=== PATIENT | male | born 1995 | race Caucasian/White ===

== ENCOUNTER 2018-05-08 11:02 | Emergency (ER) | payer OTHER ==
[2018-05-08 11:07] VITALS: TEMP 98.5
--- NOTE | 2018-05-08 11:33 | ED ---
General Adult HPI - General Chief complaint: Shortness of Breath Stated complaint: SOB Source: patient Mode of arrival: ambulatory Limitations: no limitations - History of Present Illness Initial comments: Dictation was produced using [employer] dictation software. please excuse any grammatical, word or spelling errors. Chief Complaint: 22-year-old male with past medical history of seasonal ALLERGIES presents with persistent dyspnea. History of Present Illness: Patient is a 22-year-old male with history of seasonal ALLERGIES presents with persistent dyspnea. Patient has been sick for approximately one week. States that he has been having productive cough, runny nose and nasal congestion. He was seen at a walk-in clinic by his primary care physician on Thursday. He was started on Augmentin. Patient states that his symptoms have persisted despite being on proximally 4-5 days of antibiotics. Patient denies any chest pain. He states that his shortness of breath is worse with exertion. Patient was concerned because he has a history of pneumonia. The ROS documented in this emergency department record has been reviewed and confirmed by me. Those systems with pertinent positive or negative responses have been documented in the HPI. All other systems are other negative and/or noncontributory. - Related Data Home Medications Medication Instructions Recorded Confirmed Acetaminophen [Tylenol Arthritis] 650 - 1,300 mg PO Q12H PRN 01/08/16 01/08/16 Fexofenadine/Pseudoephedrine 1 tab PO DAILY 01/08/16 01/08/16 [Priyanka-D 24 Hour Tablet] Previous Rx's Medication Instructions Recorded Ibuprofen [Motrin] 600 mg PO Q6HR PRN #40 day 01/08/16 Allergies Allergy/AdvReac Type Severity Reaction Status Date / Time No Known Allergies Allergy Verified 05/08/18 11:07 Review of Systems ROS Statement: Those systems with pertinent positive or pertinent negative responses have been documented in the HPI. ROS Other: All systems not noted in ROS Statement are negative. Past Medical History Additional Past Medical History / Comment(s): allergies History of Any Multi-Drug Resistant Organisms: None Reported Additional Past Surgical History / Comment(s): mastoidectomy Past Psychological History: No Psychological Hx Reported Smoking Status: Never smoker Past Alcohol Use History: Occasional Past Drug Use History: None Reported General Exam - General Exam Comments Initial Comments: PHYSICAL EXAM: General Impression: Alert and oriented x3, not in acute distress HEENT: Normocephalic atraumatic, extra-ocular movements intact, pupils equal and reactive to light bilaterally, mucous membranes moist. Cardiovascular: Heart regular rate and rhythm, S1&S2 audible, no murmurs, rubs or gallops Chest: Mild wheezing in the right upper lung field Abdomen: Bowel sounds present, abdomen soft, non-tender, non-distended, no organomegaly Musculoskeletal: Pulses present and equal in all extremities, no peripheral edema Motor: Power 5/5 bilaterally, no focal deficits noted Neurological: CN II-XII grossly intact, no focal motor or sensory deficits noted Skin: Intact with no visualized rashes Psych: Normal affect and mood Limitations: no limitations Course Vital Signs 05/08/18 11:02 Temperature 98.5 F Pulse Rate 88 Respiratory 18 Rate Blood Pressure 144/84 O2 Sat by Pulse 97 Oximetry Medical Decision Making - Medical Decision Making ED course: 22-year-old male presents with persistent dyspnea despite antibiotic treatment. vital signs upon arrival are within acceptable limits. Patient does have some positive auscultatory sounds in the right upper lung field. Laboratory evaluation obtained there is mild leukocytosis likely secondary to URI. Rest of labs are unremarkable. X-ray shows no acute processes. Patient appears well. He is told that is clear for discharge. He still to follow-up with his primary care physician or early next week. Advised to use [id number] medications. Told to take Tylenol and Motrin or other antipyretics for symptomatic control. Still to stay well-hydrated. Patient advised to come back to the emergency department should he expense worsening symptoms. Otherwise he is to follow-up with his primary care physician. - Lab Data Result diagrams: 05/08/18 11:45 05/08/18 11:45 Lab Results 05/08/18 05/08/18 Range/Units 11:45 11:45 WBC 15.8 H (3.8-10.6) k/uL RBC 5.42 (4.30-5.90) m/uL Hgb 15.9 (13.0-17.5) gm/dL Hct 45.3 (39.0-53.0) % MCV 83.7 (80.0-100.0) fL MCH 29.3 (25.0-35.0) pg MCHC 35.1 (31.0-37.0) g/dL RDW 12.6 (11.5-15.5) % Plt Count 201 (150-450) k/uL Neutrophils % 79 % Lymphocytes % 12 % Monocytes % 7 % Eosinophils % 1 % Basophils % 0 % Neutrophils # 12.5 H (1.3-7.7) k/uL Lymphocytes # 1.9 (1.0-4.8) k/uL Monocytes # 1.1 H (0-1.0) k/uL Eosinophils # 0.1 (0-0.7) k/uL Basophils # 0.1 (0-0.2) k/uL Sodium 139 (137-145) mmol/L Potassium 4.0 (3.5-5.1) mmol/L Chloride 101 (98-107) mmol/L Carbon Dioxide 26 (22-30) mmol/L Anion Gap 12 mmol/L BUN 17 (9-20) mg/dL Creatinine 0.82 (0.66-1.25) mg/dL Est GFR (CKD-EPI)AfAm >90 (>60 ml/min/1.73 sqM) Est GFR (CKD-EPI)NonAf >90 (>60 ml/min/1.73 sqM) Glucose 106 H (74-99) mg/dL Calcium 9.9 (8.4-10.2) mg/dL Disposition Clinical Impression: URI (upper respiratory infection) Disposition: HOME SELF-CARE Condition: Good Instructions: Upper Respiratory Infection (ED) Is patient prescribed a controlled substance at d/c from ED?: No Referrals: Gaurang Yeung DO [Primary Care Provider] - 1-2 days Time of Disposition: 12:33
[2018-05-08 12:08] LABS: Basophils # (A) 0.1 k/uL (0-0.2); Basophils % (A) 0 %; Eosinophils # (A) 0.1 k/uL (0-0.7); Eosinophils % (A) 1 %; HCT 45.3 % (39.0-53.0); HGB 15.9 gm/dL (13.0-17.5); Lymphocytes # (A) 1.9 k/uL (1.0-4.8); Lymphocytes % (A) 12 %; MCH 29.3 pg (25.0-35.0); MCHC 35.1 g/dL (31.0-37.0); MCV 83.7 fL (80.0-100.0); Mean Platelet Volume 6.9; Monocytes # (A) 1.1 k/uL (0-1.0); Monocytes % (A) 7 %; Neutrophils # (A) 12.5 k/uL (1.3-7.7); Neutrophils % (A) 79 %; Platelet Count 201 k/uL (150-450); RBC 5.42 m/uL (4.30-5.90); RDW 12.6 % (11.5-15.5); WBC 15.8 k/uL (3.8-10.6)
--- NOTE | 2018-05-08 12:16 | XR ---
EXAMINATION TYPE: XR chest 2V DATE OF EXAM: 05/08/2018 COMPARISON: Chest x-ray January 08, 2016. HISTORY: Dyspnea and productive cough. TECHNIQUE: Frontal and lateral views of the chest are obtained. FINDINGS: There is no focal air space opacity, pleural effusion, or pneumothorax seen. The cardiac silhouette size is within normal limits. The osseous structures are intact. IMPRESSION: No suspicious acute pulmonary process.
[2018-05-08 12:17] LABS: Anion Gap 12 mmol/L; Blood Urea Nitrogen 17 mg/dL (9-20); Calcium 9.9 mg/dL (8.4-10.2); Carbon Dioxide 26 mmol/L (22-30); Chloride 101 mmol/L (98-107); Glucose 106 mg/dL (74-99); Sodium 139 mmol/L (137-145)
[2018-05-08 12:46] VITALS: BP 151/86; PULSE 71; RESP 16
== END 2018-05-08 12:45 | disposition home or self-care (01) ==
LOC: EC 11:02
DX: J06.9 Acute upper respiratory infection, unspecified (principal); D72.829 Elevated white blood cell count, unspecified; Z91.048 Other nonmedicinal substance allergy status; Z87.01 Personal history of pneumonia (recurrent); Z90.89 Acquired absence of other organs
CPT/HCPCS: 36415; 71046; 80048; 85025; 99285

== ENCOUNTER 2021-02-22 14:51 | Emergency (ER) | payer OTHER ==
[2021-02-22 16:05] VITALS: BP 145/92; PULSE 73; RESP 20; TEMP 98.4
--- NOTE | 2021-02-22 16:10 | ED ---
Skin/Abscess/FB HPI - General Stated complaint: Red bumps all over - History of Present Illness Initial comments: Andrzej is a 25yo M who presents to the ER today for evaluation of rash. Patient reports that over the day weekend he was doing a lot of outdoor activities in the [facility]. He states he initially noted red pruritic rash to left arm, today that rash seemed to be opened up and draining and he noted new lesions on his left leg. - Related Data Home Medications Medication Instructions Recorded Confirmed Acetaminophen [Tylenol Arthritis] 650 - 1,300 mg PO Q12H PRN 01/08/16 01/08/16 Fexofenadine/Pseudoephedrine 1 tab PO DAILY 01/08/16 01/08/16 [Priyanka-D 24 Hour Tablet] Previous Rx's Medication Instructions Recorded Ibuprofen [Motrin] 600 mg PO Q6HR PRN #40 day 01/08/16 Cephalexin [Keflex] 500 mg PO Q8HR 1 Days #21 cap 02/22/21 Allergies Allergy/AdvReac Type Severity Reaction Status Date / Time No Known Allergies Allergy Verified 02/22/21 16:05 Review of Systems ROS Statement: Those systems with pertinent positive or pertinent negative responses have been documented in the HPI. ROS Other: All systems not noted in ROS Statement are negative. Past Medical History Additional Past Medical History / Comment(s): allergies History of Any Multi-Drug Resistant Organisms: None Reported Additional Past Surgical History / Comment(s): mastoidectomy Past Psychological History: No Psychological Hx Reported Past Alcohol Use History: Occasional Past Drug Use History: None Reported General Exam - General Exam Comments Initial Comments: Physical Exam GENERAL: Patient is well-developed and well-nourished. Patient is nontoxic and well-hydrated and is in no distress. HENT: Normocephalic, Atraumatic. EYES: PERRL, EOMI PULMONARY: Unlabored respirations. CARDIOVASCULAR: RRR Warm and well perfused extremities ABDOMEN: Non-distended SKIN: Blistering rash on left forearm Multiple small lesions with excoriations on the legs consistent with bug bites, considering travel concerning for chigger bites : Deferred NEUROLOGIC: Alert and oriented Normal speech Normal gait MUSCULOSKELETAL: Moving all extremities with no apparent injury PSYCHIATRIC: No SI/HI Course Vital Signs 02/22/21 16:02 Temperature 98.4 F Pulse Rate 73 Respiratory 20 Rate Blood Pressure 145/92 O2 Sat by Pulse 99 Oximetry Medical Decision Making - Medical Decision Making The patient was seen and evaluated, history is obtained from the patient history and physical exam are concerning for bug bites, given there are no visible bodies in continued to worsen I have a high suspicion for chiggers. Recommended supportive care. Discussed the patient the need to thoroughly wash all of his clothes that were exposed to decrease the chance of reinfection. Patient's forearm does appear to possibly have a secondary infection and therefore oral antibiotics will be ordered. All questions pertaining care were answered return parameters were discussed patient was discharged home in stable condition. Disposition Clinical Impression: Chigger bites, Rash Disposition: HOME SELF-CARE Condition: Stable Instructions (If sedation given, give patient instructions): Benzocaine (On the skin), Chigger Bite (ED) Prescriptions: Cephalexin [Keflex] 500 mg PO Q8HR 1 Days #21 cap Is patient prescribed a controlled substance at d/c from ED?: No Referrals: None,Stated [Primary Care Provider] - 1-2 days
== END 2021-02-22 16:40 | disposition home or self-care (01) ==
LOC: EC 14:51
DX: S80.862A Insect bite (nonvenomous), left lower leg, initial encounter (principal); W57.XXXA Bitten or stung by nonvenomous insect and other nonvenomous arthropods, initial encounter
CPT/HCPCS: 99282

== ENCOUNTER 2021-03-28 12:40 | Emergency (ER) | payer OTHER ==
[2021-03-28] MEDS ORDERED: SODIUM CHLORIDE 0.9% 1,000 ML IV STA (13:33)
--- NOTE | 2021-03-28 13:33 | ED ---
Abdominal Pain HPI - General Stated Complaint: lt sided abd pain Time Seen by Provider: 03/28/21 13:02 Source: patient, RN notes reviewed Mode of arrival: ambulatory Limitations: no limitations - History of Present Illness Initial Comments: 25-year-old male presents emergency Department chief complaint of left lower quadrant abdominal pain. Patient states that the pain has been persistent since yesterday. Patient states that is no history kidney stones. Pain is worse with movement. No significant nausea vomiting diarrhea constipation. Patient denies any known fevers or chills no nausea vomiting - Related Data Home Medications Medication Instructions Recorded Confirmed Acetaminophen [Tylenol Arthritis] 650 - 1,300 mg PO Q12H PRN 01/08/16 01/08/16 Fexofenadine/Pseudoephedrine 1 tab PO DAILY 01/08/16 01/08/16 [Priyanka-D 24 Hour Tablet] Previous Rx's Medication Instructions Recorded Ibuprofen [Motrin] 600 mg PO Q6HR PRN #40 day 01/08/16 Cephalexin [Keflex] 500 mg PO Q8HR 1 Days #21 cap 02/22/21 Allergies Allergy/AdvReac Type Severity Reaction Status Date / Time No Known Allergies Allergy Verified 03/28/21 13:31 Review of Systems ROS Statement: Those systems with pertinent positive or pertinent negative responses have been documented in the HPI. ROS Other: All systems not noted in ROS Statement are negative. Past Medical History Additional Past Medical History / Comment(s): allergies History of Any Multi-Drug Resistant Organisms: None Reported Additional Past Surgical History / Comment(s): mastoidectomy Past Psychological History: No Psychological Hx Reported Past Alcohol Use History: Occasional Past Drug Use History: None Reported General Exam General appearance: alert, in no apparent distress Head exam: Present: atraumatic, normocephalic, normal inspection Eye exam: Present: normal appearance, PERRL, EOMI. Absent: scleral icterus, conjunctival injection, periorbital swelling ENT exam: Present: normal exam, normal oropharynx, mucous membranes moist Neck exam: Present: normal inspection, full ROM. Absent: tenderness, meningismus, lymphadenopathy Respiratory exam: Present: normal lung sounds bilaterally. Absent: respiratory distress, wheezes, rales, rhonchi, stridor Cardiovascular Exam: Present: regular rate, normal rhythm, normal heart sounds. Absent: systolic murmur, diastolic murmur, rubs, gallop, clicks GI/Abdominal exam: Present: soft, tenderness (LL quadrant), normal bowel sounds. Absent: distended, guarding, rebound, rigid Course Vital Signs 03/28/21 13:32 Temperature 99.1 F Pulse Rate 62 Respiratory 18 Rate Blood Pressure 153/86 O2 Sat by Pulse 100 Oximetry Medical Decision Making - Medical Decision Making Patient CT, labs unremarkable. Patient may have abdominal wall strain there is no signs of infection or inflammatory process. Patient discharged in stable condition - Lab Data Result diagrams: 03/28/21 13:55 03/28/21 13:55 Lab Results 03/28/21 03/28/21 03/28/21 Range/Units 13:55 13:55 13:55 WBC 9.6 (3.8-10.6) k/uL RBC 5.38 (4.30-5.90) m/uL Hgb 15.6 (13.0-17.5) gm/dL Hct 45.6 (39.0-53.0) % MCV 84.8 (80.0-100.0) fL MCH 29.0 (25.0-35.0) pg MCHC 34.3 (31.0-37.0) g/dL RDW 12.1 (11.5-15.5) % Plt Count 168 (150-450) k/uL MPV 7.9 Neutrophils % 73 % Lymphocytes % 19 % Monocytes % 5 % Eosinophils % 1 % Basophils % 1 % Neutrophils # 7.0 (1.3-7.7) k/uL Lymphocytes # 1.8 (1.0-4.8) k/uL Monocytes # 0.5 (0-1.0) k/uL Eosinophils # 0.1 (0-0.7) k/uL Basophils # 0.1 (0-0.2) k/uL Sodium 140 (137-145) mmol/L Potassium 4.0 (3.5-5.1) mmol/L Chloride 104 (98-107) mmol/L Carbon Dioxide 24 (22-30) mmol/L Anion Gap 12 mmol/L BUN 14 (9-20) mg/dL Creatinine 0.90 (0.66-1.25) mg/dL Est GFR (CKD-EPI)AfAm >90 (>60 ml/min/1.73 sqM) Est GFR (CKD-EPI)NonAf >90 (>60 ml/min/1.73 sqM) Glucose 90 (74-99) mg/dL Plasma Lactic Acid Mt 1.3 (0.7-2.0) mmol/L Calcium 9.6 (8.4-10.2) mg/dL Total Bilirubin 0.7 (0.2-1.3) mg/dL AST 50 (17-59) U/L ALT 86 H (4-49) U/L Alkaline Phosphatase 97 (38-126) U/L Total Protein 7.8 (6.3-8.2) g/dL Albumin 4.8 (3.5-5.0) g/dL Amylase 76 (30-110) U/L Lipase 80 (23-300) U/L Disposition Clinical Impression: Abdominal pain Disposition: HOME SELF-CARE Condition: Stable Instructions (If sedation given, give patient instructions): Abdominal Pain (ED) Additional Instructions: Please return to the Emergency Department if symptoms worsen or any other concerns. Is patient prescribed a controlled substance at d/c from ED?: No Referrals: None,Stated [Primary Care Provider] - 1-2 days Time of Disposition: 14:49
[2021-03-28 13:35] VITALS: BP 153/86; PULSE 62; RESP 18; TEMP 99.1
[2021-03-28 14:17] LABS: Basophils # (A) 0.1 k/uL (0-0.2); Basophils % (A) 1 %; Eosinophils # (A) 0.1 k/uL (0-0.7); Eosinophils % (A) 1 %; HCT 45.6 % (39.0-53.0); HGB 15.6 gm/dL (13.0-17.5); Lymphocytes # (A) 1.8 k/uL (1.0-4.8); Lymphocytes % (A) 19 %; MCHC 34.3 g/dL (31.0-37.0); MCV 84.8 fL (80.0-100.0); Mean Platelet Volume 7.9; Monocytes # (A) 0.5 k/uL (0-1.0); Monocytes % (A) 5 %; Neutrophils % (A) 73 %; Platelet Count 168 k/uL (150-450); RBC 5.38 m/uL (4.30-5.90); RDW 12.1 % (11.5-15.5); WBC 9.6 k/uL (3.8-10.6)
[2021-03-28 14:38] LABS: ALT 86 U/L (4-49); AST 50 U/L (17-59); African American GFR (CKD) >90 (>60 ml/min/1.73 sqM); Albumin 4.8 g/dL (3.5-5.0); Alkaline Phosphatase 97 U/L (38-126); Amylase 76 U/L (30-110); Anion Gap 12 mmol/L; Blood Urea Nitrogen 14 mg/dL (9-20); Calcium 9.6 mg/dL (8.4-10.2); Carbon Dioxide 24 mmol/L (22-30); Chloride 104 mmol/L (98-107); Glucose 90 mg/dL (74-99); Lipase 80 U/L (23-300); Non-African American GFR(CKD) >90 (>60 ml/min/1.73 sqM); Sodium 140 mmol/L (137-145); Total Bilirubin 0.7 mg/dL (0.2-1.3); Total Protein 7.8 g/dL (6.3-8.2)
--- NOTE | 2021-03-28 14:44 | CT ---
EXAMINATION TYPE: CT abdomen pelvis w con DATE OF EXAM: 03/28/2021 COMPARISON: 12/13/2013 INDICATION: Left lower quadrant pain. DLP: 1285.6 mGycm, Automated exposure control for dose reduction was used. CONTRAST: 100 mL of Isovue 300. Study performed without Oral Contrast TECHNIQUE: Axial images were obtained from above the diaphragm to the pubic rami in the axial plane a t 5 mm thick sections. Reconstructed images are reviewed on the computer in the coronal plane. FINDINGS: Limited CT sections are obtained the lung bases. The lung bases are clear. CT ABDOMEN: Liver: Very mild fatty infiltration is not excluded. Spleen: Normal Pancreas: Normal Adrenal glands: The adrenal glands are normal. Gallbladder: Normal Kidneys: No masses are evident. No hydronephrosis is present. No cysts are present. No renal stone s are evident. Delayed images were obtained through the kidneys remain unremarkable. Aorta: Normal Inferior vena cava: Normal. CT PELVIS: Loops of bowel within the abdomen and pelvis are normal. There are loops of bowel which are incom pletely distended or lack oral contrast limiting their evaluation. Appendix: Normal as visualized. Urinary bladder: Normal. Genitourinary structures: Prostate is normal Osseous structures: No suspicious lytic or sclerotic lesions. Couple of nonspecific bone islands are likely adjacent to the right acetabulum. IMPRESSIONS: 1. Mild fatty infiltration of the liver. 2. No suspicious acute changes.
[2021-03-28 14:53] LABS: Appearance,Urine Clear (Clear); Bilirubin,Urine Negative (Negative); Blood,Urine Negative (Negative); Color,Urine Light Yellow; Glucose,Urine (UA) Negative (Negative); Ketones,Urine Negative (Negative); Leukocyte Esterase,Urine Negative (Negative); Nitrite,Urine Negative (Negative); PH, Urine 7.5 (5.0-8.0); Protein,Urine Negative (Negative)
[2021-03-28 14:56] LABS: Specific Gravity,Urine 1.049 (1.001-1.035)
== END 2021-03-28 15:10 | disposition home or self-care (01) ==
LOC: EC 12:40
DX: R10.32 Left lower quadrant pain (principal)
CPT/HCPCS: 36415; 80053; 82150; 83605; 83690; 85025; 81003; 74177; 99284; Q9967